=== PATIENT | male | born 1970 | race Caucasian/White ===

== ENCOUNTER 2020-10-28 13:51 | Outpatient (RCR) | payer BC, SELFPAY ==
[2020-10-28] MEDS: COVID-19 VACC, MRNA(PFIZER)/PF 30 MCG/0.3 ML SYRINGE IM (10:08)
[2020-11-18] MEDS: COVID-19 VACC, MRNA(PFIZER)/PF 30 MCG/0.3 ML SYRINGE IM (09:28)
== END 2020-10-28 23:59 ==
LOC: IMMUN 13:51
PROVIDERS: Visit Provider Family Medicine
DX: Z23 Encounter for immunization (principal)
CPT/HCPCS: 0001A; 0002A; 91300

== ENCOUNTER → 2022-03-07 | Outpatient (CLI) | payer BC, SELFPAY ==
--- NOTE | 2022-03-07 09:30 | EKG12_ITS ---
Test Reason : PRE-OP Blood Pressure : / mmHG Vent. Rate : 105 BPM Atrial Rate : 105 BPM P-R Int : 154 ms QRS Dur : 074 ms QT Int : 338 ms P-R-T Axes : 055 -21 010 degrees QTc Int : 446 ms Sinus tachycardia Otherwise normal ECG Confirmed by YOLANDA ANTONIO, PLACIDO ([id number]), script editor LING CASAS ([id number]) on 03/08/2022 12:40:42 PM Referred By: Marques Bacon Confirmed By:PLACIDO GUERRERO MD
== END | disposition home or self-care (01) ==
LOC: PSN 09:28
PROVIDERS: Referring Provider Urology; Visit Provider Urology
DX: Z01.810 Encounter for preprocedural cardiovascular examination (principal)
CPT/HCPCS: 93005